=== PATIENT | female | born 1935 | race Caucasian/White ===

== ENCOUNTER → 2019-03-17 | Outpatient (CLI) | payer MEDICARE, OTHER ==
[2019-03-17 16:22] LABS: Urine Blood Negative /uL (Negative); Urine Specific Gravity 1.014 (1.001-1.035)
== END | disposition home or self-care (01) ==
LOC: LAB 12:34
PROVIDERS: ATTEND Internal Medicine Cardiovascular Disease
DX: N39.0 Urinary tract infection, site not specified (principal)
CPT/HCPCS: 81003

== ENCOUNTER → 2019-04-07 | Outpatient (CLI) | payer MEDICARE, OTHER ==
[~2019-04-07] VITALS: Ht 165.1 cm; Wt 67.1 kg
[~2019-04-07] MED LIST: ADENOSINE 56 MG in GIVE UN-DILUTED 0 ML IV ONE; ADENOSINE 90 MG/30 ML INJ IV ONE
== END | disposition home or self-care (01) ==
LOC: Rad HDHVI 13:37
PROVIDERS: ATTEND Internal Medicine Cardiovascular Disease
DX: S32.00 Fracture of unspecified lumbar vertebra (principal); I08.1 Rheumatic disorders of both mitral and tricuspid valves; I48.0 Paroxysmal atrial fibrillation; K58.9 Irritable bowel syndrome, unspecified; E11.9 Type 2 diabetes mellitus without complications; I11.0 Hypertensive heart disease with heart failure; I50.33 Acute on chronic diastolic (congestive) heart failure; E78.00 Pure hypercholesterolemia, unspecified; N39.0 Urinary tract infection, site not specified; G43.909 Migraine, unspecified, not intractable, without status migrainosus; R32 Unspecified urinary incontinence; X58.XXXA Exposure to other specified factors, initial encounter; Y93.89 Activity, other specified; Y92.89 Other specified places as the place of occurrence of the external cause; Y99.8 Other external cause status
CPT/HCPCS: 78452; 82962; 93005; 93306; 96374; 96375; A9500; J0153

== ENCOUNTER → 2020-06-25 | Outpatient (CLI) | payer MEDICARE, OTHER | END | disposition home or self-care (01) | LOC: Rad HDHVI 13:10 | PROVIDERS: ATTEND Internal Medicine Cardiovascular Disease | DX: I48.19 Other persistent atrial fibrillation (principal); E78.5 Hyperlipidemia, unspecified; J44.9 Chronic obstructive pulmonary disease, unspecified | CPT/HCPCS: 93306 ==

== ENCOUNTER → 2020-07-05 | Outpatient (CLI) | payer MEDICARE, OTHER ==
[~2020-07-05] VITALS: Ht 165.1 cm; Wt 63.0 kg
[~2020-07-05] MED LIST changes: +ADENOSINE 53 MG in GIVE UN-DILUTED 0 ML IV ONE; -ADENOSINE 56 MG in GIVE UN-DILUTED 0 ML IV ONE; -ADENOSINE 90 MG/30 ML INJ IV ONE
== END | disposition home or self-care (01) ==
LOC: Rad HDHVI 09:24
PROVIDERS: ATTEND Internal Medicine Cardiovascular Disease
DX: I10 Essential (primary) hypertension (principal); E11.9 Type 2 diabetes mellitus without complications; E78.00 Pure hypercholesterolemia, unspecified; R07.9 Chest pain, unspecified; Z82.49 Family history of ischemic heart disease and other diseases of the circulatory system
CPT/HCPCS: 78452; 93017; 96374; A9500; J0153

== ENCOUNTER → 2021-02-11 | Outpatient (CLI) | payer MEDICARE, OTHER ==
[~2021-02-11] MED LIST changes: -ADENOSINE 53 MG in GIVE UN-DILUTED 0 ML IV ONE; +APIX5TAB PO; +CALC-440 PO; +CARB25TA22 PO; +DILT60TA PO; +FAMO-12 PO; +FLE50T PO; +FLUT250M2 INH; +IPRIH INH; +LEVO100T8 PO; +LISI-275 PO; +POTA10TA51 PO; +SIMV-13 PO; +TOPI50TA53 PO
[2021-02-11 11:11] VITALS: BP 166/67
[2021-02-11 11:24] VITALS: BP 166/67
[2021-02-11 12:03] LABS: Basophils # (auto) 0.1 10 ^3/uL (0-0.2); Basophils % (auto) 1.2 % (0.0-2.0); Eosinophils # (auto) 1.2 10 ^3/uL (0-0.8); Eosinophils % (auto) 14.4 % (0.0-7.0); Hematocrit 35.5 % (36.0-46.0); Hemoglobin 11.9 g/dL (12.2-16.2); Lymphocytes # (auto) 2.7 10 ^3/uL (0.4-5.4); Lymphocytes % (auto) 32.2 % (10.0-50.0); Mean Corpuscular Hemoglobin 31.7 pg (28.0-32.0); Mean Corpuscular Hgb Conc. 33.6 g/dL (32.0-36.0); Mean Corpuscular Volume 94.5 fL (80.0-100.0); Monocytes # (auto) 0.8 10 ^3/uL (0-1.3); Monocytes % (auto) 8.9 % (0.0-12.0); Neutrophils # (auto) 3.7 10 ^3/uL (1.6-8.6); Neutrophils % (auto) 43.3 % (37.0-80.0); Nucleated Red Blood Cells % 0.1 %; Platelet Count (auto) 266 10^3/uL (140-450); Red Blood Cells 3.76 10^6/uL (4.0-5.20); Red Cell Distribution Width 14.1 % (11.8-14.3); White Blood Cell 8.5 10^3/uL (4.4-10.8)
[2021-02-11 12:23] LABS: INR 1.05 (0.9-1.15); Partial Thromboplastin Time 34.4 sec (23.0-31.2)
[2021-02-11 12:25] LABS: BUN/Creatinine Ratio 15.6; Potassium 4.1 mmol/L (3.5-5.1)
== END | disposition home or self-care (01) ==
LOC: Rad HDHVI 10:54
PROVIDERS: ATTEND Internal Medicine Cardiovascular Disease
DX: Z01.812 Encounter for preprocedural laboratory examination (principal); I48.19 Other persistent atrial fibrillation
CPT/HCPCS: 36415; 80048; 85025; 85610; 85730; 93005; G0463

== ENCOUNTER 2021-02-14 06:59 | Day surgery (SDC) | payer MEDICARE, OTHER ==
[~2021-02-14] VITALS: Ht 165.1 cm; Wt 64.5 kg
[~2021-02-14 06:59] MED LIST changes: -CARB25TA22 PO; +CARB25TA79 PO
[2021-02-14] MEDS ORDERED: LIDOCAINE 2%HCL (LOCAL ANESTH.) INJ 20ML MDV ONE (07:24)
[2021-02-14] MEDS ORDERED: HEPARIN IN NS 1000Units/500mL 1,500 ML ONE (07:24)
[2021-02-14] MEDS ORDERED: IOHEXOL 350 MG/ML 100ML IJ ONE (07:24)
[2021-02-14] MEDS ORDERED: GLYCOPYRROLATE 0.2 MG/ML 1ML VIAL ONE (09:07)
[2021-02-14] MEDS ORDERED: ANGIOMAX 250 MG VIAL IV ONE (09:07)
[2021-02-14] MEDS ORDERED: PHENYLEPHRINE HCL 10 MG/ML VL ONE (09:07)
[2021-02-14] MEDS ORDERED: SODIUM CHL 0.9% 0 ML ONE (09:08)
[2021-02-14] MEDS ORDERED: ONDANSETRON HCL 4 MG/2 ML VIAL ONE (10:13)
== END 2021-02-14 13:15 | disposition home or self-care (01) ==
LOC: CATH 06:59
PROVIDERS: ATTEND Internal Medicine Cardiovascular Disease
DX: I65.22 Occlusion and stenosis of left carotid artery (principal); I10 Essential (primary) hypertension; E78.5 Hyperlipidemia, unspecified; J44.9 Chronic obstructive pulmonary disease, unspecified; E11.9 Type 2 diabetes mellitus without complications; G20 Parkinson's disease; Z87.891 Personal history of nicotine dependence; Z91.040 Latex allergy status; Z88.6 Allergy status to analgesic agent; Z88.1 Allergy status to other antibiotic agents; Z20.822 Contact with and (suspected) exposure to COVID-19; Z98.890 Other specified postprocedural states; Z79.899 Other long term (current) drug therapy; Z88.8 Allergy status to other drugs, medicaments and biological substances
CPT/HCPCS: 36224; 36227; C1760; C1894; J1644; J7030; Q9967; U0003; 99152; J2405

== ENCOUNTER → 2022-07-21 | Outpatient (CLI) | payer MEDICARE, OTHER | END | disposition home or self-care (01) | LOC: Rad HDHVI 10:04 | PROVIDERS: ATTEND Internal Medicine Cardiovascular Disease | DX: I08.1 Rheumatic disorders of both mitral and tricuspid valves (principal); I65.23 Occlusion and stenosis of bilateral carotid arteries; R00.2 Palpitations; I10 Essential (primary) hypertension | CPT/HCPCS: 93306; 93880; 93925 ==

== ENCOUNTER → 2023-05-19 | Outpatient (CLI) | payer MEDICARE, OTHER ==
[~2023-05-19] MED LIST changes: -SIMV-13 PO; +SIMV40TA18 PO
== END | disposition home or self-care (01) ==
LOC: Rad HDHVI 13:53
PROVIDERS: ATTEND Internal Medicine Cardiovascular Disease
DX: I08.1 Rheumatic disorders of both mitral and tricuspid valves (principal); I10 Essential (primary) hypertension
CPT/HCPCS: 93306

== ENCOUNTER → 2023-05-25 | Outpatient (CLI) | payer MEDICARE, OTHER ==
[~2023-05-25] VITALS: Ht 165.1 cm; Wt 58.1 kg
== END | disposition home or self-care (01) ==
LOC: Rad HDHVI 12:58
PROVIDERS: ATTEND Internal Medicine Cardiovascular Disease
DX: R06.02 Shortness of breath (principal); I10 Essential (primary) hypertension; E11.9 Type 2 diabetes mellitus without complications; E78.5 Hyperlipidemia, unspecified; I20.0 Unstable angina; I73.9 Peripheral vascular disease, unspecified; I48.0 Paroxysmal atrial fibrillation; R53.83 Other fatigue; Z82.49 Family history of ischemic heart disease and other diseases of the circulatory system
CPT/HCPCS: 78452; 93017; 96374; A9500

== ENCOUNTER 2023-12-12 11:01 | Inpatient (IN) | payer MEDICARE, OTHER ==
[~2023-12-12] VITALS: Ht 165.1 cm; Wt 54.1 kg
[2023-12-12 14:36] VITALS: BP 133/53; PULSE 69; RESP 17; TEMP 98.6; O2SAT 90
[2023-12-12] MEDS ORDERED: MORPHINE SULFATE INJ 2 MG/ml SYRG IV PRN (15:00)
[2023-12-12] MEDS ORDERED: NITROGLYCERIN 0.4 MG SL TAB SL PRN (15:00)
[2023-12-12 15:30] VITALS: PULSE 75; RESP 16; O2SAT 96
[2023-12-12 16:19] LABS: Basophils # (auto) 0.1 10 ^3/uL (0-0.2); Eosinophils # (auto) 1.2 10 ^3/uL (0-0.8); Eosinophils % (auto) 14.4 % (0.0-7.0); Hemoglobin 10.8 g/dL (12.2-16.2); Lymphocytes # (auto) 0.7 10 ^3/uL (0.4-5.4); Lymphocytes % (auto) 8.7 % (10.0-50.0); Mean Corpuscular Hemoglobin 30.2 pg (28.0-32.0); Mean Corpuscular Hgb Conc. 32.6 g/dL (32.0-36.0); Mean Corpuscular Volume 92.5 fL (80.0-100.0); Monocytes # (auto) 0.9 10 ^3/uL (0-1.3); Monocytes % (auto) 11.2 % (0.0-12.0); Neutrophils # (auto) 5.4 10 ^3/uL (1.6-8.6); Neutrophils % (auto) 64.7 % (37.0-80.0); Red Blood Cells 3.57 10^6/uL (4.0-5.20); Red Cell Distribution Width 14.8 % (11.8-14.3); White Blood Cell 8.3 10^3/uL (4.4-10.8)
[2023-12-12 16:22] LABS: Chloride 111 mmol/L (98-107); Potassium 4.6 mmol/L (3.5-5.1); Sodium 140 mmol/L (136-145)
[2023-12-12 16:23] LABS: Anion Gap 6 (5-15); Calcium 9.7 mg/dL (8.5-10.1); Carbon Dioxide 23 mmol/L (20-30)
[2023-12-12 16:27] LABS: INR 1.04 (0.9-1.15); Prothrombin Time 10.9 sec (9.3-11.8)
[2023-12-12 16:28] LABS: BUN/Creatinine Ratio 15.9 (10.0-20.0); Blood Urea Nitrogen 21 mg/dL (9-23); Glucose 87 mg/dL (74-106)
[2023-12-12] MEDS ORDERED: MONT-8 PO (16:32)
[2023-12-12] MEDS ORDERED: CARB-118 PO (16:32)
[2023-12-12] MEDS ORDERED: DILT-14 PO (16:32)
[2023-12-12] MEDS ORDERED: FAMO-12 PO (16:32)
[2023-12-12] MEDS ORDERED: POTA-220 PO (16:32)
[2023-12-12] MEDS ORDERED: VERI5TAB PO (16:32)
[2023-12-12] MEDS ORDERED: FLEC100T PO (16:32)
[2023-12-12] MEDS ORDERED: LEV100T PO (16:32)
[2023-12-12] MEDS ORDERED: CEPH500C PO (16:32)
[2023-12-12] MEDS ORDERED: SIMV40TA18 PO (16:32)
[2023-12-12 16:41] VITALS: BP 159/60; PULSE 74; RESP 16; TEMP 97.9; O2SAT 93
[2023-12-12] MEDS ORDERED: DUPI1INJ SC (18:23)
[2023-12-12] MEDS ORDERED: DIP005TP TOP (18:23)
[2023-12-12] MEDS ORDERED: [UNRECOGNIZED DRUG - CODE] (18:23)
[2023-12-12] MEDS ORDERED: GLUC-149 XX (18:30)
[2023-12-12 20:00] VITALS: BP 157/71; PULSE 75; PULSE 76; RESP 16; TEMP 98.4; O2SAT 91
[2023-12-12] MEDS: PIPERACILLIN-TAZO 4.5GM 100 ML IV SCH (21:22)
[2023-12-12 22:00] VITALS: BP 157/71; PULSE 76; RESP 16; TEMP 98.4; O2SAT 91
[2023-12-13] VITALS (8 sets, daily range): BP systolic 144–160; BP diastolic 56–72; PULSE 71–85; RESP 15–17; TEMP 98.3–98.7; O2SAT 90–94
[2023-12-13] MEDS: PIPERACILLIN-TAZO 4.5GM 100 ML IV SCH ×2 (06:27→13:07)
[2023-12-13] MEDS: PIPERACILLIN-TAZOB 3.375GM 100 ML IV SCH (21:40)
[2023-12-14] VITALS (8 sets, daily range): BP systolic 123–164; BP diastolic 60–82; PULSE 76–88; RESP 16–19; TEMP 97.5–98.8; O2SAT 90–96
[2023-12-14 09:17] LABS: Hepatitis B Surface Antigen Negative (Negative)
[2023-12-14] MEDS: ACETAMINOPHEN 325 MG TAB PO PRN (10:51)
[2023-12-14 12:12] LABS: Hepatitis C Antibody Negative (Negative)
[2023-12-14] MEDS: PIPERACILLIN-TAZOB 3.375GM 100 ML IV SCH ×2 (12:19→21:43)
[2023-12-14 12:29] LABS: Hepatitis B Core IgM Negative; Hepatitis C Antibody Negative (Negative)
[2023-12-14] MEDS: traMADol HCL 50 MG TAB PO PRN (21:38)
[2023-12-15] VITALS (7 sets, daily range): BP systolic 103–164; BP diastolic 32–75; PULSE 70–80; RESP 15–19; TEMP 97.2–98.7; O2SAT 90–98
[2023-12-15] MEDS: ACETAMINOPHEN 325 MG TAB PO PRN ×2 (05:32→21:44)
[2023-12-15 09:13] LABS: Hematocrit 36.9 % (36.0-46.0); Hemoglobin 12.1 g/dL (12.2-16.2); Mean Corpuscular Hemoglobin 30.4 pg (28.0-32.0); Mean Corpuscular Hgb Conc. 32.9 g/dL (32.0-36.0); Mean Corpuscular Volume 92.3 fL (80.0-100.0); Red Cell Distribution Width 14.5 % (11.8-14.3)
[2023-12-15 09:21] LABS: Band Neutrophils % (manual) 0; Basophils % (manual) 0 (0.0-2.0); Blast Cells 0; Metamyelocytes % 0; Myelocytes % 0; Promyelocytes % 0; Reactive Lymphocytes 0
[2023-12-15] MEDS: PIPERACILLIN-TAZOB 3.375GM 100 ML IV SCH ×2 (09:51→21:44)
[2023-12-15 10:43] LABS: Eosinophils % (manual) 19 (0-7); Lymphocytes % (manual) 15 (10.0-50.0); Monocytes % (manual) 7 (0-12); Platelet Estimate Adequate
[2023-12-15] MEDS: traMADol HCL 50 MG TAB PO PRN (12:36)
[2023-12-16] VITALS (7 sets, daily range): BP systolic 112–161; BP diastolic 51–85; PULSE 69–91; RESP 17–19; TEMP 97.5–98.5; O2SAT 90–94
[2023-12-16] MEDS: PIPERACILLIN-TAZOB 3.375GM 100 ML IV SCH ×2 (09:42→22:16)
[2023-12-16] MEDS: TOBRAMYCIN SULF 0.3% OPTH(EYE) SOLN 5ML RIGHTEYE SCH ×2 (18:49→22:16)
[2023-12-16] MEDS: ACETAMINOPHEN 325 MG TAB PO PRN (19:18)
[2023-12-17] VITALS (7 sets, daily range): BP systolic 119–165; BP diastolic 54–89; PULSE 68–89; RESP 16–19; TEMP 98–98.6; O2SAT 90–92
[2023-12-17] MEDS: ACETAMINOPHEN 325 MG TAB PO PRN ×2 (02:42→22:37)
[2023-12-17] MEDS: TOBRAMYCIN SULF 0.3% OPTH(EYE) SOLN 5ML RIGHTEYE SCH ×6 (02:42→21:13)
[2023-12-17] MEDS: PIPERACILLIN-TAZOB 3.375GM 100 ML IV SCH ×2 (09:18→21:13)
[2023-12-17] MEDS: CARBIDOPA W LEVODOPA 25/100mg TABLET PO SCH (21:13)
[2023-12-17] MEDS: VALACYCLOVIR HCL 500 MG TAB PO SCH (21:45)
[2023-12-18] MEDS: TOBRAMYCIN SULF 0.3% OPTH(EYE) SOLN 5ML RIGHTEYE SCH ×5 (02:00→18:00)
[2023-12-18 05:00] VITALS: BP 147/53; PULSE 63; RESP 18; TEMP 98.2; O2SAT 92
[2023-12-18 08:00] VITALS: PULSE 83
[2023-12-18 09:00] VITALS: BP 146/65; PULSE 70; RESP 20; TEMP 97.8; O2SAT 94
[2023-12-18] MEDS: VALACYCLOVIR HCL 500 MG TAB PO SCH (09:46)
[2023-12-18] MEDS: PIPERACILLIN-TAZOB 3.375GM 100 ML IV SCH (09:46)
[2023-12-18] MEDS: CARBIDOPA W LEVODOPA 25/100mg TABLET PO SCH (09:46)
[2023-12-18 13:00] VITALS: BP 155/58; PULSE 84; RESP 17; TEMP 97.7; O2SAT 93
[2023-12-18 17:00] VITALS: BP 132/64; PULSE 66; RESP 17; TEMP 97.6; O2SAT 91
== END 2023-12-18 19:30 | disposition home or self-care (01) | DRG 603 ==
LOC: UNDOADMIN 13:40 → EAST 13:40 → TELE-EAST 14:52
PROVIDERS: ADMIT Internal Medicine Cardiovascular Disease; ATTEND Internal Medicine Cardiovascular Disease
DX: L03.211 Cellulitis of face (principal); D64.9 Anemia, unspecified; I10 Essential (primary) hypertension; E78.5 Hyperlipidemia, unspecified; E11.40 Type 2 diabetes mellitus with diabetic neuropathy, unspecified; E11.21 Type 2 diabetes mellitus with diabetic nephropathy; I25.10 Atherosclerotic heart disease of native coronary artery without angina pectoris; I65.22 Occlusion and stenosis of left carotid artery; H10.9 Unspecified conjunctivitis; Z85.3 Personal history of malignant neoplasm of breast; Z95.0 Presence of cardiac pacemaker; Z80.0 Family history of malignant neoplasm of digestive organs; Z82.49 Family history of ischemic heart disease and other diseases of the circulatory system; Z88.2 Allergy status to sulfonamides; Z88.6 Allergy status to analgesic agent; Z88.1 Allergy status to other antibiotic agents; Z91.040 Latex allergy status; Z92.3 Personal history of irradiation
CPT/HCPCS: 36415; 70540; 80048; 85007; 85025; 85027; 85610; 85730; 86705; 86803; 87340; 93005; G0378; J2543

== ENCOUNTER 2023-12-30 09:34 | Inpatient (IN) | payer MEDICARE, OTHER ==
[~2023-12-30] VITALS: Ht 165.1 cm; Wt 59.9 kg
[2023-12-30] VITALS (7 sets, daily range): BP systolic 82–182; BP diastolic 49–72; PULSE 78–83; RESP 18–20; TEMP 97.4–98.2; O2SAT 94–100
[~2023-12-30 09:34] MED LIST changes: -APIX5TAB PO; +CARB-118 PO; +CEPH500C PO; +DILT-14 PO; -DILT60TA PO; +DIP005TP TOP; +DUPI1INJ SC; -FLE50T PO; +FLEC100T PO; +GLUC-149 XX; +LEV100T PO; -LEVO100T8 PO; -LISI-275 PO; +MONT-8 PO; +POTA-220 PO; -POTA10TA51 PO; +VERI5TAB PO; +[UNRECOGNIZED DRUG - CODE]
[2023-12-30] MEDS ORDERED: NITROGLYCERIN 0.4 MG SL TAB SL PRN (13:00)
[2023-12-30] MEDS ORDERED: MORPHINE SULFATE INJ 2 MG/ml SYRG IV PRN (13:00)
[2023-12-30] MEDS ORDERED: MEROPENEM 1 GM IV SCH (13:00)
[2023-12-30] MEDS ORDERED: VANCOMYCIN PER PHARMACY 0 MG IV SCH (14:45)
[2023-12-30] MEDS: GADOTERATE MEG 7.5 MMOL/15ml INJ (0.5MMOL/ml) IV ONE (14:59)
[2023-12-30] MEDS ORDERED: MEROPENEM 1GM IVPB 50 ML IV ONE (15:00)
[2023-12-30 15:26] LABS: Basophils # (auto) 0 10 ^3/uL (0-0.2); Basophils % (auto) 0.4 % (0.0-2.0); Eosinophils # (auto) 0.8 10 ^3/uL (0-0.8); Eosinophils % (auto) 11.3 % (0.0-7.0); Hematocrit 34.1 % (36.0-46.0); Hemoglobin 11.2 g/dL (12.2-16.2); Lymphocytes % (auto) 14.1 % (10.0-50.0); Mean Corpuscular Hemoglobin 30.3 pg (28.0-32.0); Mean Corpuscular Hgb Conc. 32.8 g/dL (32.0-36.0); Mean Corpuscular Volume 92.6 fL (80.0-100.0); Monocytes # (auto) 0.6 10 ^3/uL (0-1.3); Monocytes % (auto) 8.8 % (0.0-12.0); Neutrophils # (auto) 4.8 10 ^3/uL (1.6-8.6); Neutrophils % (auto) 65.4 % (37.0-80.0); Nucleated Red Blood Cells % 0.1 %; Red Blood Cells 3.68 10^6/uL (4.0-5.20); Red Cell Distribution Width 14.7 % (11.8-14.3); White Blood Cell 7.4 10^3/uL (4.4-10.8)
[2023-12-30 15:43] LABS: Alkaline Phosphatase 82 U/L (46-116); Anion Gap 7 (5-15); Aspartate Aminotransferase 15 U/L (13-40); BUN/Creatinine Ratio 12.8 (10.0-20.0); Bilirubin, Total 0.4 mg/dL (0.2-1.0); Blood Urea Nitrogen 15 mg/dL (9-23); Carbon Dioxide 24 mmol/L (20-30); Chloride 108 mmol/L (98-107); Glucose 119 mg/dL (74-106); Potassium 3.7 mmol/L (3.5-5.1); Sodium 139 mmol/L (136-145); Total Protein 6.5 g/dL (5.7-8.2)
[2023-12-30 15:47] LABS: Alanine Aminotransferase < 9 U/L (7-40)
[2023-12-30] MEDS: VANCOMYCIN 1GM/200ML 200 ML IV ONE (17:34)
[2023-12-30] MEDS: ACETAMINOPHEN 325 MG TAB PO PRN (17:52)
[2023-12-30] MEDS: IPRATROPIUM BROMIDE HFA AER IN SCH (18:00)
[2023-12-30] MEDS: VERICIGUAT 5 MG PO SCH (21:29)
[2023-12-30] MEDS: POTASSIUM CHL 20 Meq TABLET PO SCH (21:29)
[2023-12-30] MEDS: MONTELUKAST SODIUM 10 MG TAB PO SCH (21:30)
[2023-12-30] MEDS: FLECAINIDE ACETATE 50 MG TAB PO SCH (21:30)
[2023-12-30] MEDS: TOPIRAMATE 25 MG TAB PO SCH (21:31)
[2023-12-30] MEDS: TOBRAMYCIN SULF 0.3% OPTH(EYE) SOLN 5ML RIGHTEYE SCH (21:31)
[2023-12-30] MEDS: Fluticasone-Salmeterol (Advair Diskus 250/50) IN SCH (21:32)
[2023-12-30] MEDS: hydrALAZINE HCL 20 MG/ML VL IV ONE (21:40)
[2023-12-30] MEDS: CARBIDOPA W LEVODOPA 25/100mg TABLET PO SCH (21:41)
[2023-12-30] MEDS: FAMOTIDINE 20 MG TAB PO SCH (21:42)
[2023-12-30] MEDS: ACCU-CHEK COMFORT CURVE STRIP VI SCH (21:53)
[2023-12-30] MEDS ORDERED: PATIENTS OWN MEDICATION (Carbidopa-Levodopa (Carbidopa/Levodopa Odt 25-100 mg) 1 TAB) PO SCH (22:00)
[2023-12-30] MEDS ORDERED: CARBIDOPA W LEVODOPA 25/100mg TABLET PO SCH (22:00)
[2023-12-31] MEDS: CEFTRIAXONE SODIUM 2 GM in D5W 5% 100 ML IV SCH (00:21)
[2023-12-31 05:00] VITALS: BP 141/63; PULSE 73; RESP 18; TEMP 97.7; O2SAT 95
[2023-12-31] MEDS: LEVOTHYROXINE SODIUM 100 MCG TAB PO SCH (06:12)
[2023-12-31 08:00] VITALS: PULSE 68
[2023-12-31 08:07] LABS: RPR Non Reactive (Non Reactive)
[2023-12-31] MEDS: dilTIAZem 120MG ER CAP PO SCH (09:38)
[2023-12-31] MEDS: ATORVASTATIN 20 MG TAB PO SCH (09:38)
[2023-12-31 10:17] VITALS: BP 150/66; PULSE 76; RESP 20; TEMP 97.4; O2SAT 95
[2023-12-31 13:04] VITALS: BP 155/65; PULSE 77; RESP 19; TEMP 98; O2SAT 95
[2023-12-31 14:07] LABS: Treponema Pallidum Ab LC Non Reactive (Non Reactive)
[2023-12-31 20:00] VITALS: BP 148/58; PULSE 69; PULSE 70; RESP 16; TEMP 98.2
[2023-12-31] MEDS: VANCOMYCIN 750mg/150ml 150 ML IV SCH (21:37)
[2023-12-31 22:00] VITALS: BP 148/58; PULSE 70; RESP 16; TEMP 98.2; O2SAT 93
[2023-12-31] MEDS ORDERED: MICAFUNGIN SODIUM 100 MG in SODIUM CHL 0.9% 100 ML IV SCH (22:30)
[2024-01-01] VITALS (7 sets, daily range): BP systolic 114–184; BP diastolic 57–68; PULSE 73–79; RESP 16–17; TEMP 97.6–98.1; O2SAT 93–94
[2024-01-01] MEDS: MICAFUNGIN SODIUM 100 MG in SODIUM CHL 0.9% 100 ML IV SCH (09:23)
[2024-01-01] MEDS ORDERED: FLUCONAZOLE 200MG/100ML 100 ML IV SCH (10:00)
[2024-01-02] VITALS (7 sets, daily range): BP systolic 135–158; BP diastolic 57–84; PULSE 72–83; RESP 17–18; TEMP 97.5–97.9; O2SAT 92–93
[2024-01-03] VITALS (9 sets, daily range): BP systolic 106–163; BP diastolic 52–64; PULSE 67–81; RESP 16–18; TEMP 97.6–98.1; O2SAT 92–98
[2024-01-03] MEDS: HYDROcodone-ACET 10/325MG TAB PO PRN (03:37)
[2024-01-03] MEDS: POLYETHYLENE GLYCOL 17 GM PWDR PO PRN (22:15)
[2024-01-04] VITALS (9 sets, daily range): BP systolic 120–156; BP diastolic 48–59; PULSE 62–82; RESP 16–22; TEMP 97.6–98.8; O2SAT 90–96
[2024-01-04 08:06] LABS: Potassium 4.1 mmol/L (3.5-5.1)
[2024-01-04 08:07] LABS: Calcium 9.3 mg/dL (8.5-10.1)
[2024-01-04 08:10] LABS: Albumin 3.6 g/dL (3.2-4.8)
[2024-01-04 08:12] LABS: BUN/Creatinine Ratio 18.9 (10.0-20.0)
[2024-01-04 08:14] LABS: Phosphorus 3.9 mg/dL (2.4-5.1)
[2024-01-04] MEDS ORDERED: D5W 5% IV SCH (14:00)
[2024-01-04] MEDS ORDERED: AMPHOTERICIN B LIPOSOME IV SCH (14:00)
[2024-01-04] MEDS: AMPHOTERICIN B LIPOSOME IV SCH (16:15)
[2024-01-04] MEDS: D5W 5% IV SCH (16:15)
[2024-01-04] MEDS: PRIMIDONE 50 MG TAB PO SCH (23:25)
[2024-01-05] VITALS (8 sets, daily range): BP systolic 121–150; BP diastolic 36–69; PULSE 58–97; RESP 17–18; TEMP 98–98.9; O2SAT 93–97
[2024-01-06] VITALS (8 sets, daily range): BP systolic 115–143; BP diastolic 39–56; PULSE 58–77; RESP 16–20; TEMP 97.8–98.4; O2SAT 95–99
[2024-01-06 06:39] LABS: Hemoglobin 10.1 g/dL (12.2-16.2); Mean Corpuscular Hemoglobin 31.5 pg (28.0-32.0); Mean Corpuscular Hgb Conc. 33.5 g/dL (32.0-36.0); Mean Corpuscular Volume 94.1 fL (80.0-100.0); Red Blood Cells 3.19 10^6/uL (4.0-5.20); Red Cell Distribution Width 15.3 % (11.8-14.3); White Blood Cell 6.3 10^3/uL (4.4-10.8)
[2024-01-06 06:55] LABS: Alanine Aminotransferase 13 U/L (7-40); Albumin 3.6 g/dL (3.2-4.8); Alkaline Phosphatase 78 U/L (46-116); Anion Gap 7 (5-15); Aspartate Aminotransferase 20 U/L (13-40); BUN/Creatinine Ratio 22.3 (10.0-20.0); Bilirubin, Total 0.5 mg/dL (0.2-1.0); Blood Urea Nitrogen 29 mg/dL (9-23); Calcium 9.3 mg/dL (8.5-10.1); Carbon Dioxide 20 mmol/L (20-30); Chloride 110 mmol/L (98-107); Glucose 88 mg/dL (74-106); Potassium 3.9 mmol/L (3.5-5.1); Sodium 137 mmol/L (136-145); Total Protein 5.6 g/dL (5.7-8.2)
[2024-01-06 07:06] LABS: Band Neutrophils % (manual) 0; Basophils % (manual) 0 (0.0-2.0); Blast Cells 0; Metamyelocytes % 0; Myelocytes % 0; Promyelocytes % 0; Reactive Lymphocytes 0
[2024-01-06 10:59] LABS: Eosinophils % (manual) 20 (0-7); Lymphocytes % (manual) 9 (10.0-50.0); Monocytes % (manual) 10 (0-12)
[2024-01-06 11:00] LABS: Platelet Estimate Adequate
[2024-01-07] VITALS (7 sets, daily range): BP systolic 93–118; BP diastolic 34–40; PULSE 54–75; RESP 0–22; TEMP 97.7–98.3; O2SAT 94–98
[2024-01-07] MEDS: PRIMIDONE 50 MG TAB PO SCH (22:36)
[2024-01-08] VITALS (8 sets, daily range): BP systolic 110–152; BP diastolic 35–57; PULSE 52–77; RESP 15–22; TEMP 97.8–98; O2SAT 92–95
== END 2024-01-08 23:02 | disposition short-term general hospital (02) | DRG 121 ==
LOC: TELE-CENTR 10:48
PROVIDERS: ADMIT Internal Medicine Cardiovascular Disease; ATTEND Internal Medicine Cardiovascular Disease
DX: H05.011 Cellulitis of right orbit (principal); C34.90 Malignant neoplasm of unspecified part of unspecified bronchus or lung; L03.213 Periorbital cellulitis; J32.4 Chronic pansinusitis; H05.221 Edema of right orbit; H02.843 Edema of right eye, unspecified eyelid; E11.21 Type 2 diabetes mellitus with diabetic nephropathy; E11.40 Type 2 diabetes mellitus with diabetic neuropathy, unspecified; G25.0 Essential tremor; I10 Essential (primary) hypertension; E78.5 Hyperlipidemia, unspecified; E03.9 Hypothyroidism, unspecified; H02.401 Unspecified ptosis of right eyelid; F17.200 Nicotine dependence, unspecified, uncomplicated; I25.10 Atherosclerotic heart disease of native coronary artery without angina pectoris; Z95.0 Presence of cardiac pacemaker; Z85.840 Personal history of malignant neoplasm of eye; Z85.3 Personal history of malignant neoplasm of breast; Z90.10 Acquired absence of unspecified breast and nipple; Z82.49 Family history of ischemic heart disease and other diseases of the circulatory system; Z80.0 Family history of malignant neoplasm of digestive organs; Z88.6 Allergy status to analgesic agent; Z85.828 Personal history of other malignant neoplasm of skin
CPT/HCPCS: 36415; 70542; 70553; 80053; 80069; 80202; 82565; 82962; 84112; 84132; 85007; 85025; 85027; 86141; 86592; 87081; G0378; J0696; J1450; J2185; J2248; J7060

== ENCOUNTER 2024-01-11 12:35 | Inpatient (IN) | payer MEDICARE, OTHER ==
[~2024-01-11] VITALS: Ht 165.1 cm; Wt 53.5 kg
[2024-01-11 14:56] VITALS: RESP 18; O2SAT 98
[2024-01-11] MEDS: SODIUM CHLORIDE 0.9% 500 ML IV ONE (15:21)
[2024-01-11] MEDS: KETOROLAC TROMETH 30 MG/ML 1ML VIAL IV ONE (15:21)
[2024-01-11] MEDS: D5W 5% IV SCH (18:31)
[2024-01-11] MEDS: AMPHOTERICIN B LIPOSOME IV SCH (18:31)
[2024-01-11] MEDS: cloNIDine HCL 0.1 MG TAB PO ONE (22:43)
[2024-01-11] MEDS ORDERED: ONDANSETRON HCL 4 MG/2 ML VIAL IV PRN (23:00)
[2024-01-11] MEDS ORDERED: DEXTROSE (50%) 50ML SYRG IV PRN (23:15)
[2024-01-12] VITALS (8 sets, daily range): BP systolic 111–134; BP diastolic 49–65; PULSE 60–75; RESP 12–20; TEMP 97.2–98; O2SAT 92–97
[2024-01-12] MEDS: ACCU-CHEK COMFORT CURVE STRIP VI SCH (05:08)
[2024-01-12] MEDS: InsuLIN REG 1unit/0.01ml Soln (100units/ml) SC SCH (05:08)
[2024-01-12] MEDS ORDERED: IPRATROPIUM BROMIDE HFA AER IN SCH (06:00)
[2024-01-12 06:13] LABS: Hematocrit 31.7 % (36.0-46.0); Hemoglobin 10.6 g/dL (12.2-16.2); Mean Corpuscular Hemoglobin 31.4 pg (28.0-32.0); Mean Corpuscular Hgb Conc. 33.5 g/dL (32.0-36.0); Mean Corpuscular Volume 93.9 fL (80.0-100.0); Red Blood Cells 3.38 10^6/uL (4.0-5.20); White Blood Cell 6.9 10^3/uL (4.4-10.8)
[2024-01-12 06:19] LABS: Alanine Aminotransferase 22 U/L (7-40); Alkaline Phosphatase 117 U/L (46-116); Anion Gap 10 (5-15); BUN/Creatinine Ratio 19.2 (10.0-20.0); Blood Urea Nitrogen 24 mg/dL (9-23); Calcium 9.5 mg/dL (8.5-10.1); Carbon Dioxide 21 mmol/L (20-30); Chloride 105 mmol/L (98-107); Glucose 97 mg/dL (74-106); Sodium 136 mmol/L (136-145)
[2024-01-12 06:20] LABS: Albumin 3.6 g/dL (3.2-4.8); Aspartate Aminotransferase 25 U/L (13-40); Bilirubin, Total 0.5 mg/dL (0.2-1.0); Total Protein 5.8 g/dL (5.7-8.2)
[2024-01-12 06:26] LABS: Band Neutrophils % (manual) 0; Basophils % (manual) 0 (0.0-2.0); Blast Cells 0; Metamyelocytes % 0; Myelocytes % 0; Promyelocytes % 0; Reactive Lymphocytes 0
[2024-01-12 09:04] LABS: Eosinophils % (manual) 19 (0-7); Lymphocytes % (manual) 11 (10.0-50.0); Monocytes % (manual) 10 (0-12); Platelet Estimate Adequate
[2024-01-12] MEDS ORDERED: PATIENTS OWN MEDICATION (Simvastatin 40 MG) PO SCH ×2 (10:00)
[2024-01-12] MEDS ORDERED: DILTIAZEM HCL COATED BEADS 120 MG PO SCH (10:00)
[2024-01-12] MEDS ORDERED: PATIENTS OWN MEDICATION (Flecainide Acetate 100 MG) PO SCH (10:00)
[2024-01-12] MEDS ORDERED: PATIENTS OWN MEDICATION (Topiramate 50 MG) PO SCH (10:00)
[2024-01-12] MEDS ORDERED: CARBIDOPA W LEVODOPA 25/100mg TABLET PO SCH (10:00)
[2024-01-12] MEDS: dilTIAZem 120MG ER CAP PO SCH (12:39)
[2024-01-12] MEDS: POTASSIUM CHL 20 Meq TABLET PO SCH (12:39)
[2024-01-12] MEDS: ATORVASTATIN 20 MG TAB PO SCH (12:39)
[2024-01-12] MEDS: LEVOTHYROXINE SODIUM 100 MCG TAB PO SCH (12:39)
[2024-01-12] MEDS: FLECAINIDE ACETATE 50 MG TAB PO SCH (12:40)
[2024-01-12] MEDS: TOPIRAMATE 25 MG TAB PO SCH (12:40)
[2024-01-12] MEDS ORDERED: TOPI25TA84 PO (15:23)
[2024-01-12] MEDS: CARBIDOPA W LEVODOPA 25/100mg TABLET PO SCH (21:59)
[2024-01-12] MEDS: MONTELUKAST SODIUM 10 MG TAB PO SCH (21:59)
[2024-01-12] MEDS: FAMOTIDINE 20 MG TAB PO SCH (22:00)
[2024-01-12] MEDS: HYDROcodone-ACET 5/325MG TAB PO PRN (22:19)
[2024-01-13] VITALS (7 sets, daily range): BP systolic 100–174; BP diastolic 42–64; PULSE 57–76; RESP 16–18; TEMP 97.9–98.6; O2SAT 94–98
[2024-01-13] MEDS: hydrALAZINE HCL 20 MG/ML VL IV PRN (23:12)
[2024-01-14 05:00] VITALS: BP 137/51; PULSE 75; RESP 16; TEMP 97.7; O2SAT 94
[2024-01-14 07:55] VITALS: BP 146/49; PULSE 74; RESP 20; TEMP 98; O2SAT 96
[2024-01-14 08:58] VITALS: BP 154/54; PULSE 67; RESP 20; TEMP 98; O2SAT 96
[2024-01-14 13:00] VITALS: BP 155/54; PULSE 75; RESP 18; TEMP 98.2; O2SAT 95
[2024-01-14 16:59] VITALS: BP 164/56; PULSE 72; RESP 20; TEMP 98.3; O2SAT 94
[2024-01-14 22:00] VITALS: BP 150/52; PULSE 84; RESP 16; TEMP 98; O2SAT 96
[2024-01-15 00:25] VITALS: BP 119/35
[2024-01-15 05:00] VITALS: BP 156/82; PULSE 73; RESP 18; TEMP 98.1; O2SAT 93
[2024-01-15 08:39] VITALS: BP 131/47; PULSE 74; RESP 18; TEMP 98; O2SAT 93
[2024-01-15 12:27] VITALS: BP 130/52; PULSE 78; RESP 20; TEMP 97.7; O2SAT 94
[2024-01-15 17:00] VITALS: BP 125/44; PULSE 71; RESP 20; TEMP 98.3; O2SAT 92
[2024-01-15 22:00] VITALS: BP 169/60; PULSE 71; RESP 18; TEMP 97.4; O2SAT 92
[2024-01-16] VITALS (7 sets, daily range): BP systolic 140–172; BP diastolic 45–54; PULSE 70–79; RESP 16–21; TEMP 97.6–98.3; O2SAT 92–95
[2024-01-16] MEDS ORDERED: POM PO (11:17)
[2024-01-16] MEDS: VERQUVO 5 MG PO SCH (22:00)
[2024-01-17] VITALS (7 sets, daily range): BP systolic 91–140; BP diastolic 35–149; PULSE 67–82; RESP 16–22; TEMP 97.8–98.6; O2SAT 91–97
[2024-01-18 05:00] VITALS: BP_SYST 123; BP_SYST 127; BP_DIAS 44; BP_DIAS 66; PULSE 64; PULSE 69; RESP 15; RESP 16; TEMP 98; O2SAT 92; O2SAT 95
[2024-01-18 07:14] LABS: Basophils # (auto) 0.1 10 ^3/uL (0-0.2); Basophils % (auto) 1.2 % (0.0-2.0); Eosinophils # (auto) 0.9 10 ^3/uL (0-0.8); Eosinophils % (auto) 12.7 % (0.0-7.0); Hematocrit 29.7 % (36.0-46.0); Hemoglobin 9.8 g/dL (12.2-16.2); Lymphocytes % (auto) 13.7 % (10.0-50.0); Mean Corpuscular Hemoglobin 30.8 pg (28.0-32.0); Mean Corpuscular Volume 93.4 fL (80.0-100.0); Monocytes % (auto) 14.1 % (0.0-12.0); Neutrophils # (auto) 4.3 10 ^3/uL (1.6-8.6); Neutrophils % (auto) 58.3 % (37.0-80.0); Red Blood Cells 3.18 10^6/uL (4.0-5.20); Red Cell Distribution Width 16.2 % (11.8-14.3); White Blood Cell 7.4 10^3/uL (4.4-10.8)
[2024-01-18 07:27] LABS: Chloride 105 mmol/L (98-107); Potassium 4.5 mmol/L (3.5-5.1); Sodium 133 mmol/L (136-145)
[2024-01-18 07:28] LABS: Anion Gap 7 (5-15); Carbon Dioxide 21 mmol/L (20-30)
[2024-01-18 07:29] LABS: Calcium 10.2 mg/dL (8.5-10.1)
[2024-01-18 07:33] LABS: Glucose 87 mg/dL (74-106)
[2024-01-18 07:34] LABS: BUN/Creatinine Ratio 14.3 (10.0-20.0); Blood Urea Nitrogen 28 mg/dL (9-23)
[2024-01-18 09:00] VITALS: BP 117/42; PULSE 70; RESP 18; TEMP 97.8; O2SAT 92
[2024-01-18] MEDS: DOCUSATE SOD 100 MG CAP PO PRN (09:40)
[2024-01-18 13:00] VITALS: BP 117/41; PULSE 75; RESP 16; TEMP 98.6; O2SAT 93
[2024-01-18] MEDS: SODIUM CHLORIDE 0.9% 1,000 ML IV ONE (13:45)
[2024-01-18] MEDS: EPOETIN ALFA-EPBX 10,000 UNIT/1ML VIAL SC ONE (14:15)
[2024-01-18 17:00] VITALS: BP 123/43; PULSE 70; RESP 16; TEMP 97.9; O2SAT 95
[2024-01-18 22:00] VITALS: BP 151/50; PULSE 76; RESP 16; TEMP 98; O2SAT 96
[2024-01-19 05:00] VITALS: BP 128/36; PULSE 67; RESP 17; TEMP 98.1; O2SAT 93
[2024-01-19 09:00] VITALS: BP 129/47; PULSE 70; RESP 17; TEMP 97.9; O2SAT 94
[2024-01-19 13:00] VITALS: BP 115/45; PULSE 67; RESP 15; TEMP 97.9; O2SAT 94
[2024-01-19 17:00] VITALS: BP 139/48; PULSE 62; RESP 14; TEMP 97.6; O2SAT 95
[2024-01-19 22:00] VITALS: BP 143/47; PULSE 75; RESP 18; TEMP 97.7; O2SAT 96
[2024-01-20 05:00] VITALS: BP 137/45; PULSE 71; RESP 18; TEMP 97.7; O2SAT 94
[2024-01-20 09:00] VITALS: BP 110/61; PULSE 67; RESP 15; TEMP 97.7; O2SAT 98
[2024-01-20 13:00] VITALS: BP 133/49; PULSE 70; RESP 18; TEMP 98; O2SAT 97
[2024-01-20 17:00] VITALS: BP 111/50; PULSE 75; RESP 17; TEMP 97.7; O2SAT 95
[2024-01-20 22:05] VITALS: BP 140/55; PULSE 78; RESP 16; TEMP 98.1; O2SAT 94
[2024-01-21] VITALS (7 sets, daily range): BP systolic 117–144; BP diastolic 46–58; PULSE 59–67; RESP 14–18; TEMP 97.8–97.9; O2SAT 93–97
[2024-01-21] MEDS: ARTIFICIAL TEARS 15ml EACHEYE PRN (14:47)
[2024-01-21] MEDS: ACETAMINOPHEN 325 MG TAB PO PRN (23:11)
[2024-01-22] VITALS (7 sets, daily range): BP systolic 90–150; BP diastolic 52–63; PULSE 55–75; RESP 16–18; TEMP 97.7–98; O2SAT 94–98
[2024-01-23 05:00] VITALS: BP 121/62; PULSE 76; RESP 16; TEMP 97.7; O2SAT 96
[2024-01-23 08:59] VITALS: BP 116/50; PULSE 72; RESP 16; TEMP 97.8; O2SAT 94
[2024-01-23 13:00] VITALS: BP 139/67; PULSE 78; RESP 16; TEMP 97.7; O2SAT 97
[2024-01-23 17:00] VITALS: BP 95/45; PULSE 55; RESP 18; TEMP 98; O2SAT 96
[2024-01-23 20:00] VITALS: BP 98/44; PULSE 73; RESP 16; TEMP 97.9; O2SAT 96
[2024-01-23 22:00] VITALS: BP 98/44; PULSE 73; RESP 16; TEMP 97.9; O2SAT 96
[2024-01-24 05:00] VITALS: BP 124/55; PULSE 71; RESP 17; TEMP 97.5; O2SAT 97
[2024-01-24 08:43] VITALS: BP 136/48; PULSE 71; RESP 16; TEMP 98.4; O2SAT 93
[2024-01-24 12:47] VITALS: BP 122/62; PULSE 75; RESP 16; TEMP 98.7; O2SAT 93
[2024-01-24 17:00] VITALS: BP 123/49; PULSE 70; RESP 16; TEMP 98.6; O2SAT 95
[2024-01-24 20:00] VITALS: BP 104/56; PULSE 72; RESP 17; TEMP 98.2; O2SAT 96
[2024-01-24 22:00] VITALS: BP 104/56; PULSE 72; RESP 17; TEMP 98.2; O2SAT 94
[2024-01-25 05:13] VITALS: BP 127/63; PULSE 74; RESP 17; TEMP 97.9; O2SAT 92
[2024-01-25 09:01] VITALS: BP 109/60; PULSE 70; RESP 20; TEMP 97.3; O2SAT 95
[2024-01-25 13:00] VITALS: BP 104/46; PULSE 71; RESP 19; TEMP 98.3; O2SAT 94
[2024-01-25 14:59] LABS: Basophils # (auto) 0 10 ^3/uL (0-0.2); Basophils % (auto) 0.2 % (0.0-2.0); Eosinophils % (auto) 12.7 % (0.0-7.0); Hematocrit 31.3 % (36.0-46.0); Hemoglobin 10.2 g/dL (12.2-16.2); Lymphocytes # (auto) 1.1 10 ^3/uL (0.4-5.4); Lymphocytes % (auto) 14.6 % (10.0-50.0); Mean Corpuscular Hemoglobin 30.3 pg (28.0-32.0); Mean Corpuscular Hgb Conc. 32.7 g/dL (32.0-36.0); Mean Corpuscular Volume 92.7 fL (80.0-100.0); Monocytes # (auto) 0.9 10 ^3/uL (0-1.3); Monocytes % (auto) 11.9 % (0.0-12.0); Neutrophils # (auto) 4.6 10 ^3/uL (1.6-8.6); Neutrophils % (auto) 60.6 % (37.0-80.0); Nucleated Red Blood Cells % 0.1 %; Red Blood Cells 3.38 10^6/uL (4.0-5.20); Red Cell Distribution Width 15.7 % (11.8-14.3); White Blood Cell 7.7 10^3/uL (4.4-10.8)
[2024-01-25 15:20] LABS: Albumin 3.8 g/dL (3.2-4.8); Alkaline Phosphatase 117 U/L (46-116); Anion Gap 4 (5-15); Aspartate Aminotransferase 15 U/L (13-40); BUN/Creatinine Ratio 18.4 (10.0-20.0); Bilirubin, Total 0.3 mg/dL (0.2-1.0); Blood Urea Nitrogen 28 mg/dL (9-23); Calcium 11.4 mg/dL (8.5-10.1); Carbon Dioxide 24 mmol/L (20-30); Chloride 109 mmol/L (98-107); Glucose 95 mg/dL (74-106); Potassium 4.5 mmol/L (3.5-5.1); Sodium 137 mmol/L (136-145)
[2024-01-25 15:37] LABS: Alanine Aminotransferase < 9 U/L (7-40)
[2024-01-25 17:10] VITALS: BP 126/45; PULSE 65; RESP 18; TEMP 97.7; O2SAT 93
[2024-01-25 20:00] VITALS: PULSE 83; RESP 18; O2SAT 95
[2024-01-25 22:00] VITALS: BP 125/42; PULSE 83; RESP 18; TEMP 97.7; O2SAT 95
[2024-01-26 05:00] VITALS: BP 138/54; PULSE 71; RESP 18; TEMP 97.8; O2SAT 97
[2024-01-26 07:30] VITALS: PULSE 71; RESP 18; O2SAT 95
[2024-01-26 09:00] VITALS: BP 133/54; PULSE 61; RESP 19; TEMP 97.5; O2SAT 92
[2024-01-26 12:59] VITALS: BP 154/67; PULSE 75; RESP 17; TEMP 97.3; O2SAT 94
[2024-01-26 17:12] VITALS: BP 132/54; PULSE 68; RESP 18; TEMP 36.3; O2SAT 97
== END 2024-01-26 19:01 | disposition hospice, home (50) | DRG 55 ==
LOC: ER 12:35 → OVERFLOW 23:04 → EAST 01-12 09:48
PROVIDERS: ADMIT Nurse Practitioner Family; ATTEND Internal Medicine Cardiovascular Disease
DX: C79.49 Secondary malignant neoplasm of other parts of nervous system (principal); H05.011 Cellulitis of right orbit; D64.9 Anemia, unspecified; E11.22 Type 2 diabetes mellitus with diabetic chronic kidney disease; I12.9 Hypertensive chronic kidney disease with stage 1 through stage 4 chronic kidney disease, or unspecified chronic kidney disease; E03.9 Hypothyroidism, unspecified; Z51.5 Encounter for palliative care; N18.9 Chronic kidney disease, unspecified; Z85.3 Personal history of malignant neoplasm of breast; Z90.710 Acquired absence of both cervix and uterus; Z88.6 Allergy status to analgesic agent; Z87.891 Personal history of nicotine dependence; Z85.118 Personal history of other malignant neoplasm of bronchus and lung; Z79.4 Long term (current) use of insulin
CPT/HCPCS: 36415; 80048; 80053; 82962; 85007; 85025; 85027; 87081; 96361; 96374; G0378; J1815; J1885; J7060